=== PATIENT | male | born 1985 | race Caucasian/White ===

== ENCOUNTER 2017-05-16 09:03 | Emergency (ER) | payer MEDICAID, OTHER ==
[2017-05-16 09:10] VITALS: RESP 18; TEMP 98.6
--- NOTE | 2017-05-16 09:28 | EDPHY ---
H & P Stated Complaint: R shoulder/clavicle injury this am- Time Seen by Provider: 05/16/17 09:26 HPI/ROS: HPI: This is a 31-year-old male who presents with Chief Complaint: R shoulder/clavicle injury this am Location: Right shoulder clavicle Quality: Injury Duration: 1-3 hours prior to arrival Signs and Symptoms: No bleeding, no radiation, no numbness, no weakness, no tingling, no incontinence, no decreased range of motion, no swelling, + pain, no fever Timing: Acute Severity: 06/03 Context: Patient is right-hand dominant, presents to the emergency room from work, after he had approximately 7 heavy industrial doors fall directly on his right anterior shoulder and lateral shoulder watching him between the doors and the wall. Patient reports that it took 3 min to get the doors off of him. Denies LOC/head injury/neck pain/dizziness/nausea/vomiting/amnesia. Patient reports that he has pain in the right clavicle area near the AC joint, that is constant, nonradiating in nature, 06/03, worsened with palpation of the area. Patient reports that he has full range of motion and denies any paresthesias/ numbness/weakness. Denies any prior shoulder injuries. Has not tried any over- the-counter pain medications. Modifying Factors: None Comment: ROS: see HPI Constitutional: No fever, no chills, no weight loss Eyes: No blurred vision Respiratory: No shortness of breath, no cough Cardiovascular: No chest pain Gastrointestinal: No nausea, no vomiting no diarrhea Genitourinary: No dysuria Extremities: No myalgias Neurologic: No weakness, no numbness Skin: No rashes Hematologic: No bruising, no bleeding MEDICAL/SURGICAL/SOCIAL HISTORY: Medical history: Generally healthy. Does not take any regular medications. Surgical history: Denies Social history: Employed CONSTITUTIONAL: Polite and cooperative adult white male, awake and alert, no obvious distress HEENT: Atraumatic and normocephalic. NECK: supple, no midline tenderness, flexion 45 degrees, extension 45 degrees, right and left lateral flexion 45 degrees. No meningismus. Cardiovascular: Normal S1/S2, regular rate, regular rhythm, without murmur rub or gallop. PULMONARY/CHEST: Symmetrical and nontender. no crepitus. Clear to auscultation bilaterally. Good air movement. No accessory muscle usage. ABDOMEN: Soft, nondistended, nontender, no ecchymosis. PELVIC: no pain with rocking; bilateral hips flexion 125 degrees, extension 30 degrees, with no pain internal rotation and no pain external rotation. BACK: No midline tenderness, no paraspinous spasm, deep tendon reflexes 2/2, no pain with straight leg raise, No foot drop. Achilles reflexes are equal bilaterally. Able to walk on heels and toes without difficulty. EXTREMITIES: 2/2 pulses, strength 5/5, right SHOULDER: Arc test abduction to 180, abduction to 45, horizontal flexion 130, horizontal extension to 45, deltoid strength 5/5. No pain with Neer test/Evangelista test (impingement). Moderate Tenderness to palpation over AC joint. Mild tenderness over the distal aspect of the right clavicle but no tenting of skin or deformity appreciated. DIP/PIP/MCP flexion/extension intact with good light touch sensation. no deformities, no clubbing, no cyanosis or edema. NEUROLOGICAL: no focal neuro deficits. GCS 15. Light touch sensation intact. SKIN: Warm and dry, no erythema. no rash. Good capillary refill. Source: Patient Exam Limitations: No limitations - Personal History Current Tetanus/Diphtheria Vaccine: Unsure Current Tetanus Diphtheria and Acellular Pertussis (TDAP): Unsure - Medical/Surgical History Hx Asthma: No Hx Chronic Respiratory Disease: No Hx Diabetes: No Hx Cardiac Disease: No Hx Renal Disease: No Hx Cirrhosis: No Hx Alcoholism: No Hx HIV/AIDS: No Hx Splenectomy or Spleen Trauma: No Other PMH: PMH: Denies - Social History Smoking Status: Current every day smoker Constitutional: Initial Vital Signs Temperature (C) 37.0 C 05/16/17 09:08 Heart Rate 58 L 05/16/17 09:08 Respiratory Rate 18 05/16/17 09:08 Blood Pressure 128/77 H 05/16/17 09:08 O2 Sat (%) 99 05/16/17 09:08 O2 Delivery Mode Room Air Allergies/Adverse Reactions: No Known Allergies Allergy (Unverified 09/11/15 16:48) Home Medications: Medication Instructions Recorded NK [No Known Home Meds] 05/16/17 Medical Decision Making Procedures: Procedure: Splint placement. A right sling was applied by the Emergency Room eligibility technician. After application of the splint I returned and re-examined the patient. The splint was adequately immobilizing the joint and distal to the splint the patient's circulation and sensation was intact. ED Course/Re-evaluation: Right shoulder x-ray and oral medications ordered Given p.o. Flexeril and p.o. Ibuprofen; ice pack applied No signs of neurovascular compromise/tenting of skin/compartment syndrome/ extremities and joints examined above and below area of concern and are neurovascularly intact. Right shoulder x-ray my read shows no fracture, dislocation, AC separation Advised rice therapy, sling provided, work note provided This patient was seen under the supervision of my secondary supervising physician. I evaluated care for this patient independently. Differential Diagnosis: Differential diagnosis includes but is not limited to AC joint sprain clavicle fracture, humerus fracture, bursitis, rotator cuff injury, brachial plexus injury, muscle strain. - Data Points Medications Given: Discontinued Medications Diazepam (Valium) 5 mg PO EDNOW ONE Stop: 05/16/17 09:33 Last Admin: 05/16/17 09:41 Dose: 5 mg Ibuprofen (Motrin) 600 mg PO EDNOW ONE Stop: 05/16/17 09:33 Last Admin: 05/16/17 09:41 Dose: 600 mg Departure - Departure Disposition: Home, Routine, Self-Care Clinical Impression: Injury of right shoulder Qualifiers: Encounter type: initial encounter Qualified Code(s): S49.91XA - Unspecified injury of right shoulder and upper arm, initial encounter Sprain of shoulder, right Qualifiers: Encounter type: initial encounter Shoulder sprain type: unspecified sprain Qualified Code(s): S43.401A - Unspecified sprain of right shoulder joint, initial encounter Condition: Good Instructions: How to Use a Sling (ED), Shoulder Sprain (ED) Additional Instructions: Wear the sling until pain free but did not wear more than 7 days. Take Tylenol 650 mg every 4 hours and/or Ibuprofen 600 mg every 8 hours with food as needed for pain. Apply ice for 30 minutes at a time; 2-3 times per day for the next 1-2 days. Follow up with Orthopedics in 7-10 days if symptoms persist at which time they will evaluate and recommend with you if conservative management versus MRI shoulder is indicated. The x-rays obtained in the emergency department today demonstrate no evidence of an obvious fracture. Return to the ER immediately if you experience new or worsening pain, discoloration, numbness, tingling, or any other symptoms that concern you. Referrals: Tommie Styles MD [Medical Doctor] - As per Instructions Stand Alone Forms: Work Excuse
[2017-05-16] MEDS ORDERED: DIAZEPAM 5 MG TAB PO ONE (09:32)
[2017-05-16] MEDS ORDERED: IBUPROFEN 600 MG TAB PO ONE (09:32)
[2017-05-16 10:50] VITALS: BP 119/74; PULSE 47; O2SAT 97
== END 2017-05-16 10:52 | disposition home or self-care (01) ==
DX: S43.401A Unspecified sprain of right shoulder joint, initial encounter (principal); F17.200 Nicotine dependence, unspecified, uncomplicated; W20.8XXA Other cause of strike by thrown, projected or falling object, initial encounter; Y99.0 Civilian activity done for income or pay; Y93.89 Activity, other specified
CPT/HCPCS: A4565